=== PATIENT | male | born 1970 | race Caucasian/White ===

== ENCOUNTER 2019-07-20 10:15 | Outpatient (REF) | payer MEDICAID, SELFPAY ==
[2019-07-20 21:46] LABS: ALT 72 U/L (16-63); AST 67 U/L (15-37); Albumin 3.5 g/dL (3.4-5.0); Alkaline Phosphatase 256 U/L (46-116); Anion Gap 6.2 mmol/L (3-11); BUN 8 mg/dL (7-18); Bilirubin, Total 0.4 mg/dL (0.2-1.0); CO2 37.8 mmol/L (21.0-32.0); CREATININE 0.95 mg/dL (0.70-1.30); Calcium 8.6 mg/dL (8.5-10.1); Calculated LDL 205 mg/dL (<100); Chloride 91 mmol/L (98-107); Cholesterol 293 mg/dL (<200); Glucose 156 mg/dL (74-106); HDL Cholesterol 50 mg/dL (40-60); Potassium 3.9 mmol/L (3.5-5.1); Sodium 135 mmol/L (136-145); Total Protein 7.8 g/dL (6.4-8.2); Triglyceride 193 mg/dL (<150)
== END 2019-07-20 10:35 ==
LOC: NCHCN 10:15
PROVIDERS: PCP Nurse Practitioner Family; Visit Provider Nurse Practitioner Family
DX: I10 Essential (primary) hypertension (principal); F32.9 Major depressive disorder, single episode, unspecified; F10.10 Alcohol abuse, uncomplicated
CPT/HCPCS: 80053; 80061

== ENCOUNTER 2019-08-06 09:52 | Outpatient (REF) | payer MEDICAID, SELFPAY ==
[2019-08-06 21:10] LABS: COMMENT (LAB VIEW ONLY) < 13.00 mg/dL
[2019-08-06 21:16] LABS: Anion Gap 6.3 mmol/L (3-11); BUN 8 mg/dL (7-18); CO2 33.7 mmol/L (21.0-32.0); CREATININE 0.77 mg/dL (0.70-1.30); Calcium 8.3 mg/dL (8.5-10.1); Chloride 89 mmol/L (98-107); Glucose 130 mg/dL (74-106); NT-proBNP 2768 pg/mL (<300); Sodium 129 mmol/L (136-145)
== END 2019-08-06 10:12 ==
LOC: NCHCN 09:52
PROVIDERS: PCP Nurse Practitioner Family; Visit Provider Nurse Practitioner Family
DX: I50.9 Heart failure, unspecified (principal); I27.20 Pulmonary hypertension, unspecified; E87.1 Hypo-osmolality and hyponatremia; E11.9 Type 2 diabetes mellitus without complications
CPT/HCPCS: 80048; 82043; 82570; 83880

== ENCOUNTER 2019-10-28 22:57 | Outpatient (REF) | payer MEDICAID, SELFPAY ==
[2019-10-28 21:12] LABS: Hemoglobin A1C 5.9 % (3.8-5.6)
[2019-10-28 21:48] LABS: ALT 52 U/L (16-63); AST 63 U/L (15-37); Albumin 3.6 g/dL (3.4-5.0); Alkaline Phosphatase 236 U/L (46-116); Anion Gap 11.1 mmol/L (3-11); BUN 6 mg/dL (7-18); Bilirubin, Total 0.3 mg/dL (0.2-1.0); CO2 25.9 mmol/L (21.0-32.0); CREATININE 0.76 mg/dL (0.70-1.30); Chloride 92 mmol/L (98-107); Glucose 105 mg/dL (74-106); Magnesium 1.8 mg/dL (1.8-2.4); Potassium 4.7 mmol/L (3.5-5.1); Sodium 129 mmol/L (136-145); Total Protein 7.7 g/dL (6.4-8.2); Vitamin B12 357 pg/mL (193-986)
== END 2019-10-28 23:17 ==
LOC: NCHCN 22:57
PROVIDERS: PCP Nurse Practitioner Family; Visit Provider Nurse Practitioner Family
DX: E11.9 Type 2 diabetes mellitus without complications (principal); I27.20 Pulmonary hypertension, unspecified; K70.30 Alcoholic cirrhosis of liver without ascites; R29.6 Repeated falls; J44.9 Chronic obstructive pulmonary disease, unspecified; E87.1 Hypo-osmolality and hyponatremia
CPT/HCPCS: 80053; 82607; 83036; 83735

== ENCOUNTER 2020-04-26 16:36 | Outpatient (REF) | payer MEDICAID, SELFPAY ==
[2020-04-26 22:31] LABS: Abs Immature Grans 0.03 10^3/uL (0.0-0.06); Absolute Basophil Count 0.11 10^3/uL (0.0-0.2); Absolute Eosinophil Count 0.27 10^3/uL (0.0-0.7); Absolute Lymphocyte Count 2.13 10^3/uL (1.2-3.4); Absolute Monocyte Count 1.21 10^3/uL (0.1-0.8); Absolute Neutrophil Count 5.43 10^3/uL (1.2-6.7); Basophils % 1.2; Eosinophils % 2.9; HCT 36.1 % (40.0-50.0); HGB 9.6 g/dL (13.5-17.5); Immature Grans % 0.3; Lymphocytes % 23.2; MCH 17.5 pg (27.0-33.0); MCHC 26.6 % (32.0-36.0); MCV 65.8 fL (80-95); MPV 10.1 fL (8.0-11.0); Monocytes % 13.2; Neutrophils % 59.2; Nucleated RBC 0 %; RBC 5.49 10^6/uL (4.36-5.78); RDW 20.3 % (11.8-14.1); RDW-SD 45.3 fL; WBC 9.18 10^3/uL (4.4-10.8)
[2020-04-26 22:39] LABS: Iron 18 ug/dL (65-175); Total Iron Binding Capacity 562 ug/dL (250-450); Transferrin Sat 3 % (20-55)
[2020-04-26 22:47] LABS: Diff Comment RBC Morph Reviewed; Hypochromasia 2+; Microcytosis 3+; Polychromasia Present; Reticulocyte 2.2 % (0.5-2.4)
[2020-04-26 22:48] LABS: Platelet Count 284 10^3/uL (130-400); Poikilocytes 1+
[2020-04-26 22:56] LABS: ALT 49 U/L (16-63); AST 41 U/L (15-37); Alkaline Phosphatase 157 U/L (46-116); Anion Gap 7.2 mmol/L (3-11); BUN 15 mg/dL (7-18); Bilirubin, Total 0.4 mg/dL (0.2-1.0); CO2 30.8 mmol/L (21.0-32.0); CREATININE 0.84 mg/dL (0.70-1.30); Calcium 9.4 mg/dL (8.5-10.1); Chloride 92 mmol/L (98-107); Ferritin 9 ng/mL (26-388); Folate 5.8 ng/mL (8.6-20.0); Glucose 120 mg/dL (74-106); Magnesium 1.9 mg/dL (1.8-2.4); Sodium 130 mmol/L (136-145); Total Protein 8.7 g/dL (6.4-8.2)
[2020-04-28 09:44] LABS: Transferrin 453 mg/dL (201-352)
== END 2020-04-26 16:56 ==
LOC: NCHCN 16:36
PROVIDERS: PCP Nurse Practitioner Family; Visit Provider Nurse Practitioner Family
DX: K70.30 Alcoholic cirrhosis of liver without ascites (principal); R74.01 Elevation of levels of liver transaminase levels; R09.02 Hypoxemia; G47.33 Obstructive sleep apnea (adult) (pediatric)
CPT/HCPCS: 80053; 82728; 82746; 83540; 83550; 83735; 84466; 85025; 85045

== ENCOUNTER 2020-05-30 10:49 | Outpatient (REF) | payer MEDICAID, SELFPAY ==
[2020-05-30 13:35] LABS: TSH (W/Ref FT4) 2.64 uIU/mL (0.36-3.74)
[2020-05-31 09:28] LABS: Hepatitis B Surface Ag Negative (Negative)
[2020-05-31 10:18] LABS: Hepatitis C Ab w Rflx HCV PCR Negative (Negative)
[2020-05-31 12:44] LABS: Hep A Total Ab w Rflx IgM Positive (Negative)
[2020-05-31 14:14] LABS: Hep A Antibody IgM Negative (Negative)
== END 2020-05-30 11:09 ==
LOC: NCHCN 10:49
PROVIDERS: PCP Nurse Practitioner Family; Visit Provider Nurse Practitioner Family
DX: Z13.818 Encounter for screening for other digestive system disorders (principal)
CPT/HCPCS: 86709; 86803; 87340; 84443

== ENCOUNTER 2020-09-19 10:10 | Outpatient (REF) | payer MEDICAID, SELFPAY ==
[2020-09-19 14:39] LABS: HCT 47.8 % (40.0-50.0); MCH 27.3 pg (27.0-33.0); MCHC 31.4 % (32.0-36.0); MCV 87.1 fL (80-95); MPV 11.2 fL (8.0-11.0); Platelet Count 216 10^3/uL (130-400); RBC 5.49 10^6/uL (4.36-5.78); RDW 18.2 % (11.8-14.1); RDW-SD 58.4 fL; WBC 8.27 10^3/uL (4.4-10.8)
[2020-09-19 14:53] LABS: Iron 67 ug/dL (65-175); Total Iron Binding Capacity 388 ug/dL (250-450); Transferrin Sat 17 % (20-55)
[2020-09-19 15:07] LABS: Anion Gap 10.6 mmol/L (3-11); BUN 6 mg/dL (7-18); CO2 26.4 mmol/L (21.0-32.0); CREATININE 0.9 mg/dL (0.70-1.30); Calcium 9.3 mg/dL (8.5-10.1); Chloride 92 mmol/L (98-107); Ferritin 50 ng/mL (26-388); Glucose 82 mg/dL (74-106); Potassium 4.3 mmol/L (3.5-5.1); Sodium 129 mmol/L (136-145)
== END 2020-09-19 10:11 | disposition home or self-care (01) ==
LOC: NCHCN 10:10
PROVIDERS: PCP Nurse Practitioner Family; Visit Provider Nurse Practitioner Family
DX: R19.7 Diarrhea, unspecified (principal); I10 Essential (primary) hypertension; R73.03 Prediabetes; K70.30 Alcoholic cirrhosis of liver without ascites
CPT/HCPCS: 80048; 85027; 82728; 83036; 83540; 83550

== ENCOUNTER 2020-12-29 16:18 | Outpatient (REF) | payer MEDICAID, SELFPAY ==
[2020-12-29 20:56] LABS: HCT 43.6 % (40.0-50.0); HGB 14.1 g/dL (13.5-17.5); MCH 31.3 pg (27.0-33.0); MCHC 32.3 % (32.0-36.0); MCV 96.9 fL (80-95); MPV 9.5 fL (8.0-11.0); Platelet Count 309 10^3/uL (130-400); RDW 13.1 % (11.8-14.1); RDW-SD 46.8 fL; WBC 9.74 10^3/uL (4.4-10.8)
[2020-12-29 21:10] LABS: Hemoglobin A1C 5.8 % (<5.7); Iron 72 ug/dL (65-175); Total Iron Binding Capacity 344 ug/dL (250-450); Transferrin Sat 21 % (20-55)
[2020-12-29 21:37] LABS: Anion Gap 13.3 mmol/L (3-11); BUN 8 mg/dL (7-18); CO2 22.7 mmol/L (21.0-32.0); CREATININE 0.8 mg/dL (0.70-1.30); Chloride 94 mmol/L (98-107); Ferritin 75 ng/mL (26-388); Folate 7.3 ng/mL (8.6-20.0); Glucose 171 mg/dL (74-106); Potassium 4.3 mmol/L (3.5-5.1); Sodium 130 mmol/L (136-145); Vitamin B12 602 pg/mL (193-986)
== END 2020-12-29 16:19 | disposition home or self-care (01) ==
LOC: NCHCN 16:18
PROVIDERS: PCP Nurse Practitioner Family; Visit Provider Nurse Practitioner Family
DX: I10 Essential (primary) hypertension (principal); D64.9 Anemia, unspecified; E53.8 Deficiency of other specified B group vitamins; R73.03 Prediabetes
CPT/HCPCS: 80048; 85027; 82607; 82728; 82746; 83036; 83540; 83550

== ENCOUNTER 2021-05-09 14:46 | Outpatient (REF) | payer MEDICAID, SELFPAY ==
[2021-05-09 15:33] LABS: ALT 177 U/L (16-63); AST 146 U/L (15-37); Albumin 3.5 g/dL (3.4-5.0); Alkaline Phosphatase 292 U/L (46-116); Anion Gap 11.3 mmol/L (3-11); BUN 12 mg/dL (7-18); Bilirubin, Total 0.5 mg/dL (0.2-1.0); CO2 25.7 mmol/L (21.0-32.0); CREATININE 0.8 mg/dL (0.70-1.30); Calcium 9.1 mg/dL (8.5-10.1); Chloride 93 mmol/L (98-107); Folate 8.3 ng/mL (8.6-20.0); Glucose 183 mg/dL (74-106); Sodium 130 mmol/L (136-145); Vitamin B12 482 pg/mL (193-986)
== END 2021-05-09 14:47 | disposition home or self-care (01) ==
LOC: NCHCN 14:46
PROVIDERS: PCP Nurse Practitioner Family; Visit Provider Nurse Practitioner Family
DX: I10 Essential (primary) hypertension (principal); R73.03 Prediabetes; D64.9 Anemia, unspecified; E53.8 Deficiency of other specified B group vitamins
CPT/HCPCS: 80053; 85027; 82607; 82746; 83036

== ENCOUNTER 2021-05-10 17:34 | Outpatient (REF) | payer MEDICAID, SELFPAY ==
[2021-05-10 17:49] LABS: HGB 15.1 g/dL (13.5-17.5); MCH 31.3 pg (27.0-33.0); MCHC 32.1 % (32.0-36.0); MCV 97.3 fL (80-95); MPV 10.4 fL (8.0-11.0); Platelet Count 225 10^3/uL (130-400); RBC 4.83 10^6/uL (4.36-5.78); RDW-SD 46.2 fL; WBC 8.77 10^3/uL (4.4-10.8)
== END 2021-05-10 17:35 | disposition home or self-care (01) ==
LOC: NCHCN 17:34
PROVIDERS: PCP Nurse Practitioner Family; Visit Provider Nurse Practitioner Family
DX: I10 Essential (primary) hypertension (principal); R73.03 Prediabetes; D64.9 Anemia, unspecified
CPT/HCPCS: 85027; 83036

== ENCOUNTER 2021-07-05 18:40 | Outpatient (REF) | payer MEDICAID, SELFPAY ==
[2021-07-05 15:06] LABS: ALT 68 U/L (16-63); AST 71 U/L (15-37); Albumin 3.6 g/dL (3.4-5.0); Alkaline Phosphatase 214 U/L (46-116); Anion Gap 7.1 mmol/L (3-11); BUN 8 mg/dL (7-18); Bilirubin, Total 0.3 mg/dL (0.2-1.0); CO2 27.9 mmol/L (21.0-32.0); CREATININE 0.8 mg/dL (0.70-1.30); Calcium 8.9 mg/dL (8.5-10.1); Chloride 94 mmol/L (98-107); Glucose 246 mg/dL (74-106); Potassium 4.6 mmol/L (3.5-5.1); Sodium 129 mmol/L (136-145)
[2021-07-06 09:33] LABS: HBs Antibody, Quant <3.1 mIU/mL (See Note); Hepatitis B Surface Ab Negative (See Note)
[2021-07-06 11:22] LABS: Hepatitis A Antibody IgM Negative (Negative); Hepatitis B Core Antibody Negative (Negative); Hepatitis B surface Ag Negative (Negative); Hepatitis C Ab w Rflx HCV PCR Negative (Negative)
== END 2021-07-05 18:41 | disposition home or self-care (01) ==
LOC: NCHCN 18:40
PROVIDERS: PCP Nurse Practitioner Family; Visit Provider Nurse Practitioner Family
DX: Z13.818 Encounter for screening for other digestive system disorders (principal); F10.10 Alcohol abuse, uncomplicated; I10 Essential (primary) hypertension; R74.8 Abnormal levels of other serum enzymes; E87.1 Hypo-osmolality and hyponatremia
CPT/HCPCS: 80053; 86704; 86706; 86709; 86803; 87340

== ENCOUNTER 2021-07-31 14:57 | Outpatient (REF) | payer MEDICAID, SELFPAY ==
[2021-07-31 15:48] LABS: Anion Gap 11.4 mmol/L (3-11); BUN 9 mg/dL (7-18); CO2 25.6 mmol/L (21.0-32.0); CREATININE 0.8 mg/dL (0.70-1.30); Calcium 8.6 mg/dL (8.5-10.1); Chloride 93 mmol/L (98-107); Glucose 193 mg/dL (74-106); Magnesium 1.8 mg/dL (1.8-2.4); Potassium 4.2 mmol/L (3.5-5.1); Sodium 130 mmol/L (136-145); Vitamin B12 379 pg/mL (193-986)
== END 2021-07-31 14:58 | disposition home or self-care (01) ==
LOC: NCHCN 14:57
PROVIDERS: PCP Nurse Practitioner Family; Visit Provider Nurse Practitioner Family
DX: I10 Essential (primary) hypertension (principal); E87.1 Hypo-osmolality and hyponatremia; F10.10 Alcohol abuse, uncomplicated
CPT/HCPCS: 80048; 82607; 83735

== ENCOUNTER 2021-12-25 09:49 | Outpatient (REF) | payer MEDICAID, SELFPAY ==
[2021-12-25 15:54] LABS: HCT 43.9 % (40.0-50.0); HGB 13.4 g/dL (13.5-17.5); MCH 27.1 pg (27.0-33.0); MCHC 30.5 % (32.0-36.0); MCV 89 fL (80-95); MPV 10.6 fL (8.0-11.0); Platelet Count 264 10^3/uL (130-400); RBC 4.95 10^6/uL (4.36-5.78); RDW 14.6 % (11.8-14.1); WBC 9.83 10^3/uL (4.4-10.8)
[2021-12-25 16:12] LABS: ALT 96 U/L (16-63); AST 126 U/L (15-37); Albumin 3.2 g/dL (3.4-5.0); Alkaline Phosphatase 266 U/L (46-116); Anion Gap 12.6 mmol/L (3-11); BUN 10 mg/dL (7-18); Bilirubin, Total 0.4 mg/dL (0.2-1.0); CO2 26.4 mmol/L (21.0-32.0); CREATININE 0.8 mg/dL (0.70-1.30); Calcium 8.9 mg/dL (8.5-10.1); Chloride 91 mmol/L (98-107); Glucose 267 mg/dL (74-106); Potassium 4.6 mmol/L (3.5-5.1); Sodium 130 mmol/L (136-145); TSH (W/Ref FT4) 3.53 uIU/mL (0.36-3.74); Total Protein 8.5 g/dL (6.4-8.2)
[2021-12-25 17:20] LABS: INR 1.1 (0.9-1.1)
== END 2021-12-25 09:50 | disposition home or self-care (01) ==
LOC: NCHCN 09:49
PROVIDERS: PCP Nurse Practitioner Family; Visit Provider Nurse Practitioner Family
DX: K76.0 Fatty (change of) liver, not elsewhere classified (principal); E03.9 Hypothyroidism, unspecified; I10 Essential (primary) hypertension
CPT/HCPCS: 80053; 85027; 84443; 85610

== ENCOUNTER 2022-05-17 11:47 | Outpatient (REF) | payer MEDICAID, SELFPAY ==
[2022-05-17 16:44] LABS: Anion Gap 11.6 mmol/L (3-11); BUN 6 mg/dL (7-18); CO2 23.4 mmol/L (21.0-32.0); CREATININE 0.7 mg/dL (0.70-1.30); Calcium 8.8 mg/dL (8.5-10.1); Chloride 91 mmol/L (98-107); Estimated GFR 110.87 (mL/min/1.73m2); Glucose 216 mg/dL (74-106); Potassium 4.1 mmol/L (3.5-5.1); Sodium 126 mmol/L (136-145)
== END 2022-05-17 11:48 | disposition home or self-care (01) ==
LOC: NCHCN 11:47
PROVIDERS: PCP Nurse Practitioner Family; Visit Provider Nurse Practitioner Family
DX: I10 Essential (primary) hypertension (principal)
CPT/HCPCS: 80048